=== PATIENT | female | born 1965 | race Asian ===

== ENCOUNTER 2019-02-02 00:27 | Inpatient (IN) | payer OTHER ==
--- NOTE | 2019-02-01 06:25 | NUR ---
PT IS AMBULATORY NO SCD DEVICE ATTACHED. DR. CAMARENA Addendum: 02/02/19 at 0652 by Nikki Rodriguez RN ADWOA RAMIRES
[~2019-02-02] VITALS: Ht 152.4 cm; Wt 46.3 kg
[2019-02-02 00:33] VITALS: BP 160/90
--- NOTE | 2019-02-02 00:38 | NUR ---
TO LOBBY A/W BED, AMB, EKG DONE, NSR.
--- NOTE | 2019-02-02 00:40 | NUR ---
EKG PERFORMED IN TRIAGE ROOM
--- NOTE | 2019-02-02 01:04 | NUR ---
PT AMBULATED TO BED 10.
--- NOTE | 2019-02-02 01:05 | NUR ---
PT TAKEN TO XRAY VIA W/C IN STABLE CONDITION
--- NOTE | 2019-02-02 01:12 | NUR ---
PT RETURNED FROM XRAY VIA W/C IN STABLE CONDITION
[2019-02-02 01:31] LABS: BASOPHILS % (AUTO) 0.8 % (0.0-2.0); EOSINOPHILS # (AUTO) 0.4 K/uL (0-0.4); EOSINOPHILS % (AUTO) 6.6 % (0.0-4.0); HEMATOCRIT 42.2 % (36-48); HEMOGLOBIN 14.1 g/dL (12.0-16.0); LYMPHOCYTES # (AUTO) 1.9 K/uL (2.5-16.5); LYMPHOCYTES % (AUTO) 35.5 % (20.5-51.1); MEAN CORPUSCULAR HEMOGLOBIN 31 pg (27-31); MEAN CORPUSCULAR HGB CONC 34 g/dL (33-37); MEAN CORPUSCULAR VOLUME 93.1 fL (80-94); MONOCYTES # (AUTO) 0.3 K/uL (0.8-1.0); MONOCYTES % (AUTO) 6.3 % (1.7-9.3); NEUTROPHILS # (AUTO) 2.8 K/uL (1.8-7.7); NEUTROPHILS % (AUTO) 50.8 % (42.2-75.2); PLATELET COUNT (AUTO) 197 K/uL (140-450); RED BLOOD CELL COUNT(AUTO) 4.54 MIL/uL (4.20-5.40); RED CELL DISTRIBUTION WIDTH 13.3 % (11.6-13.7); WHITE BLOOD COUNT (AUTO) 5.5 K/uL (4.8-10.8)
--- NOTE | 2019-02-02 01:37 | NUR ---
PATIENT PRESENTS TO ED WITH C/O CHEST PAIN X 2 MONTHS. PT STATES CHEST PAIN FEELS LIKE PRESSURE AND LAST APPROXIMATELY 30 SECONDS. PT DENIES PAIN AT THIS TIME. PT DENIES N/V/D; SKIN IS PINK/WARM/DRY; AAOX4 WITH EVEN AND STEADY GAIT; LUNGS CLEAR BL; HR EVEN AND REGULAR; PATIENT STATES PAIN OF 0/10 AT THIS TIME; VSS; PATIENT POSITIONED FOR COMFORT; HOB ELEVATED; BEDRAILS UP X2; BED DOWN.
[2019-02-02 01:46] LABS: ANION GAP 13.7 (8-16); CREATININE 0.7 mg/dL (0.6-1.3); POTASSIUM 3.7 mmol/L (3.5-5.1)
[2019-02-02 01:52] LABS: ALBUMIN 4.1 g/dL (3.4-5.0); MAGNESIUM 2.2 mg/dL (1.8-2.4); TOTAL BILIRUBIN 0.5 mg/dL (0.0-1.0)
[2019-02-02 02:38] LABS: PROTHROMBIN TIME 10.1 secs (10.8-13.4)
[2019-02-02] MEDS ORDERED: ASPIRIN 325 MG TAB ONE (02:57)
--- NOTE | 2019-02-02 02:58 | NUR ---
ASPIRIN 325 MG PO, PT SWALLOWED W/O DIFFICULTY W/ WATER.
[2019-02-02] MEDS ORDERED: NITROGLYCERIN 0.4 MG TAB SL PRN (03:00)
[2019-02-02] MEDS ORDERED: ACETAMINOPHEN 325 MG TAB PO PRN (03:00)
[2019-02-02] MEDS ORDERED: ZOLPIDEM 5 MG TAB PO PRN (03:00)
[2019-02-02] MEDS ORDERED: ONDANSETRON 4 MG/2 ML VIAL IVP PRN (03:00)
[2019-02-02] MEDS ORDERED: HYDROcodone/APAP 7.5/325 MG 1 TAB PO PRN (03:00)
[2019-02-02] MEDS ORDERED: ASPIRIN 325 MG TAB PO SCH (03:30)
--- NOTE | 2019-02-02 03:30 | NUR ---
Admited to Med-Surg; pt went to room 111-B; via [email or web address] by TANIA Carmona and DORITA Carvajal; patient acting appropriatly. VSS, patient acting appropriatly. Belongings list completed. Report to TANIA Araujo charge nurse.
[2019-02-02 04:13] VITALS: BP 144/88
[2019-02-02 04:32] LABS: FREE T4 (FREE THYROXINE) 0.9 ng/dL (0.76-1.46); PHOSPHORUS 3.9 mg/dL (2.5-4.9); THYROID STIMULATING HORMONE 6.72 uIU/mL (0.34-3.74)
--- NOTE | 2019-02-02 04:45 | NUR ---
RECEIVED PT FROM ER .PT IS AWAKE,ALERT AND ORIENTED.RESP UNLABORED IN RA.LUNG CLEAR.NO EDEMA NOTED.ORIENTED TO ROOM.CALL SYSTEM EXPLAINED AND WITHIN REACH.SL PATENT IN LT FA W/O REDNESS OR EDEMA AT SITE.TELE APPLIED AND SHOWING SR W/FREQ.OVC.DENIED PAIN AND/OR DISCOMFORT AT TIME OF ADMISSION.PLAN OF CARE DISCUSSED W/ PT .VERBALIZED UNDERSTANDING.WILL MONITOR PT.WILL ENDORSED PT TO DONY MARIN.
--- NOTE | 2019-02-02 04:45 | NUR ---
RECEIVED PT FROM CHARGE NURSE. PT IS AWAKE,ALERT AND ORIENTED X 4. PT COMFORTABLE IN BED. NO SIGNS OF PAIN. NO DISCOMFORT REPORTED BY PATIENT. PLACED IN LOW BED POSITION. CALL LIGHT WITH EASY REACH. WILL CONTINUE TO MONITOR.
--- NOTE | 2019-02-02 05:19 | NUR ---
ASPIRIN ALREADY GIVEN AT ER ENDORSED TO CHARGE NURSENEMESIO. DID NOT ADMINISTER THE ASPIRIN.
--- NOTE | 2019-02-02 05:22 | NUR ---
ASPIRIN FOR 0330 AM DOSE NOT TO BE GIVEN ANYMORE CONFIRMED BY DR. VILLEDA.
[2019-02-02] MEDS ORDERED: HEPARIN PER PHARMACY MC PRN (06:00)
[2019-02-02] MEDS ORDERED: ATOR20TA PO (06:32)
--- NOTE | 2019-02-02 06:32 | NUR ---
PATIENT HAS BEEN SCREENED AND CATEGORIZED MODERATE NUTRITION RISK. PATIENT WILL BE SEEN WITHIN 3-5 DAYS OF ADMISSION. 02/04/19-02/06/19 JU MARES MS, RDN
[2019-02-02] MEDS: NACL 0.9% 1,000 ML IV SCH ×2 (06:47→22:58)
--- NOTE | 2019-02-02 06:52 | NUR ---
PT IS AMBULATORY NO SCD DEVICE ATTACHED. DR. CAMARENA
[2019-02-02] MEDS ORDERED: LISINOPRIL 5 MG TAB PO SCH ×2 (07:00→09:00)
[2019-02-02 07:21] LABS: CHOL/HDL RATIO 2.9 (1-4.5)
--- NOTE | 2019-02-02 07:21 | NUR ---
ENDORSED TO AM SHIFT FOR CONTINUITY OF CARE. NO COMPLAINTS OF PAIN AT THIS TIME.
--- NOTE | 2019-02-02 07:22 | NUR ---
REPORT RECEIVED FROM RESCUE INSTRUCTOR NURSE, PT AWAKE ALERT, RESP EVEN UNLABORED ON RA, SKIN WARM DRY COLOR WNL, DENIES CHEST PAIN, POC REVIEWED, ALL SAFETY MEASURES IN PLACE, DENIES ANY IMMEDIATE NEEDS, WILL CONTINUE TO MONITOR.
[2019-02-02 08:00] VITALS: BP 126/69
[2019-02-02] MEDS: METOPROLOL 25 MG TAB PO SCH ×2 (08:00→16:43)
[2019-02-02] MEDS: ASPIRIN 81 MG TAB.CHEW PO SCH (09:00)
[2019-02-02] MEDS: DOCUSATE SODIUM 100 MG GELCAP PO SCH ×2 (09:00→21:32)
[2019-02-02] MEDS: hePARIN / DEXT 5% PREMIX 250 ML IV SCH ×2 (09:12→16:41)
--- NOTE | 2019-02-02 09:21 | NUR ---
HEPARIN DRIP STARTED, VERIFIED WITH 2 RNS, PT EDUCATED ON MEDICATION, PT VERBALIZED UNDERSTANDING, WILL CONTINUE TO SATISH.
[2019-02-02 09:56] LABS: APPEARANCE,URINE CLEAR (CLEAR); BILIRUBIN,URINE NEGATIVE (NEGATIVE); BLOOD, URINE TRACE-I (NEGATIVE); COLOR,URINE YELLOW (YELLOW); LEUKOCYTE ESTERASE ,URINE TRACE (NEGATIVE); NITRITE, URINE NEGATIVE (NEGATIVE); UGLUCOSE NEGATIVE (NEGATIVE)
[2019-02-02 10:04] LABS: BARBITURATE, URINE NEG. ng/ml (NEG <=200); BENZODIAZEPINE, URINE NEG. ng/mL (NEG <=200); CANNABINOID, URINE NEG. ng/mL (NEG <=50); COCAINE, URINE NEG. ng/mL (NEG <=300); OPIATE, URINE NEG. ng/mL (NEG <=2000); PHENCYCLIDINE SCREEN,URINE NEG. ng/mL (NEG <=25)
--- NOTE | 2019-02-02 10:30 | NUR ---
PT SLEEPING QUIETLY IN NAD, RESP EVEN UNLABORED, NO BLEEDING OR BRUISING NOTED.
--- NOTE | 2019-02-02 11:53 | NUR ---
VITALS TAKEN, STUDENT NURSE INTERVIEWING PATIENT, PT DENIES CHEST PAIN.
[2019-02-02 12:00] VITALS: BP 109/68
--- NOTE | 2019-02-02 14:02 | NUR ---
PT RESTING QUIETLY IN NAD, RESP EVEN UNLABORED, SKIN WARM DRY COLOR WNL, NO ACTIVE BLEEDING, HEPARIN DRIP CONTINUES AT 550 UNITS /HR, PT DENIES ANY IMMEDIATE NEEDS, WILL CONTINUE TO MONITOR.
[2019-02-02 16:00] VITALS: BP 119/68
--- NOTE | 2019-02-02 17:05 | NUR ---
DR PATHAK TO BEDSIDE.
--- NOTE | 2019-02-02 18:15 | NUR ---
HEPARIN DRIP STOPPED AT THIS TIME.
[2019-02-02] MEDS ORDERED: cefTRIAXone 1,000 MG VIAL ONE (18:52)
--- NOTE | 2019-02-02 18:54 | NUR ---
PER AFTER HOURS PHARMACIST, GIVE HEPARIN SQ 5000 NOW, HOLD 2100 DOSE, RESTART AT 0900. PHARMACIST AWARE OF PT'S PTT LEVEL 52.2, OK TO GIVE SQ DOSE NOW.
--- NOTE | 2019-02-02 19:14 | NUR ---
REPORT GIVEN TO SENIOR MILITARY ANALYST NURSE, PT IN STABLE CONDITION.
--- NOTE | 2019-02-02 19:15 | NUR ---
REPORT RECEIVED FROM AM SHIFT NURSE, PT AWAKE ALERT, O, X 4 . PT IS AMBULATORY, GOES TO THE RESTROOM W/ STEADY GAIT. NO RESPIRATORY DISTRESS AT THIS TIME, DENIES CHEST PAIN, POC REVIEWED, ALL SAFETY MEASURES IN PLACE, CALL LIGHT WITHIN REACH. WILL CONTINUE TO MONITOR.
--- NOTE | 2019-02-02 19:18 | NUR ---
RECEIVED CRITICAL LAB RESULT TROP I 0.162. REPORTED BY MAGI MUSA
[2019-02-02 20:00] VITALS: BP 123/80
[2019-02-02] MEDS: ATORVASTATIN 20 MG TAB PO SCH (21:32)
--- NOTE | 2019-02-02 22:13 | NUR ---
PT WENT TO THE BATHROOM, NO BM NOTED YET. WILL CONTINUE TO MONITOR
[2019-02-03] VITALS: BP 110/66
--- NOTE | 2019-02-03 01:32 | NUR ---
INFORMED DR. VILLEDA- ABN LAB 52.2 APTT, THIS AM SHIFT DR. PATHAK D/C THE HEPARIN. NO NEW ORDERS
--- NOTE | 2019-02-03 02:00 | NUR ---
PT WENT TO BATHROOM, AMBULATING WELL WITH STRADY GAIT, STILL NO BM. NO CHEST PAIN AT THIS TIME PER PT.
[2019-02-03 04:00] VITALS: BP 125/74
[2019-02-03 06:32] LABS: BASOPHILS # (AUTO) 0.1 K/uL (0.00-0.22); BASOPHILS % (AUTO) 1.9 % (0.0-2.0); EOSINOPHILS # (AUTO) 0.4 K/uL (0-0.4); EOSINOPHILS % (AUTO) 12.5 % (0.0-4.0); HEMOGLOBIN 13.2 g/dL (12.0-16.0); LYMPHOCYTES # (AUTO) 1.4 K/uL (2.5-16.5); LYMPHOCYTES % (AUTO) 42.4 % (20.5-51.1); MEAN CORPUSCULAR HEMOGLOBIN 32 pg (27-31); MEAN CORPUSCULAR HGB CONC 34 g/dL (33-37); MEAN CORPUSCULAR VOLUME 93.1 fL (80-94); MONOCYTES # (AUTO) 0.2 K/uL (0.8-1.0); MONOCYTES % (AUTO) 7.3 % (1.7-9.3); NEUTROPHILS # (AUTO) 1.2 K/uL (1.8-7.7); NEUTROPHILS % (AUTO) 35.9 % (42.2-75.2); PLATELET COUNT (AUTO) 178 K/uL (140-450); RED BLOOD CELL COUNT(AUTO) 4.19 MIL/uL (4.20-5.40); RED CELL DISTRIBUTION WIDTH 13.4 % (11.6-13.7); WHITE BLOOD COUNT (AUTO) 3.2 K/uL (4.8-10.8)
--- NOTE | 2019-02-03 06:36 | NUR ---
PT WAS REMINDED ON THE NPO AND THAT SHE HAS A STRESS TEST THIS AM
[2019-02-03 06:51] LABS: CARBON DIOXIDE 27.6 mmol/L (21-32); CREATININE 0.7 mg/dL (0.6-1.3); POTASSIUM 3.6 mmol/L (3.5-5.1)
[2019-02-03 06:56] LABS: PHOSPHORUS 3.5 mg/dL (2.5-4.9)
--- NOTE | 2019-02-03 07:20 | NUR ---
ENDORSED TO NEXT SHIFT FOR CONTINUITY OF CARE. PT IN STABLE CONDITION AT THIS TIME.
--- NOTE | 2019-02-03 07:21 | NUR ---
RECEIVED REPORT FROM FIELD CROPS HARVEST MACHINE OPERATOR NURSE DONY. PT IN STABLE CONDITION. RESPIRATIONS EVEN AND UNLABORED. IV INTACT AND PATENT. SAFETY MEASURES IN PLACE. CALL LIGHT AT BEDSIDE. BED IN LOW POSITION. WILL CONTINUE TO MONITOR.
[2019-02-03 08:00] VITALS: BP 108/68
[2019-02-03] MEDS: METOPROLOL 25 MG TAB PO SCH ×2 (08:49→17:00)
[2019-02-03] MEDS: LISINOPRIL 5 MG TAB PO SCH (08:50)
[2019-02-03] MEDS: ASPIRIN 81 MG TAB.CHEW PO SCH (08:50)
[2019-02-03] MEDS: DOCUSATE SODIUM 100 MG GELCAP PO SCH ×2 (08:50→20:05)
--- NOTE | 2019-02-03 09:07 | NUR ---
GAVE ORDERED DUE MEDICATIONS AT THIS TIME. PT TOLERATED WELL. SAFETY MEASURES IN PLACE. CALL LIGHT AT BEDSIDE. BED IN LOW POSITION. WILL CONTINUE TO MONITOR.
[2019-02-03] MEDS: NACL 0.9% 1,000 ML IV SCH (11:18)
--- NOTE | 2019-02-03 11:27 | NUR ---
FLUSHED IV WITH 10ML NS, STARTED NEW IVF 1,000ML AT 50ML/HR. PT TOLERATED WELL. BED IN LOW POSITION. CALL LIGHT AT BEDSIDE. WILL CONTINUE TO MONITOR.
[2019-02-03 12:00] VITALS: BP 109/55
[2019-02-03 16:00] VITALS: BP 103/62
--- NOTE | 2019-02-03 17:10 | NUR ---
HELD METOPROLOL TARTRATE PT STATES NO CHEST PAIN, BP 103/62 HR67
--- NOTE | 2019-02-03 19:50 | NUR ---
GAVE REPORT TO CHEF DE PARTIE NURSE FOR CONTINUITY OF CARE. PT IN STABLE CONDITION.
[2019-02-03 20:00] VITALS: BP 110/70
--- NOTE | 2019-02-03 20:00 | NUR ---
SEEN PT AWAKE, ALERT AND ORIENTED APPEARS COMFORTABLE. INITIAL ASSESSMENT DONE. VITAL SIGNS CHECKED. PT DENIES ANY DISCOMFORT. SAFETY ENSURED. PT DENIES ANY OTHER NEEDS.
[2019-02-03] MEDS: ATORVASTATIN 20 MG TAB PO SCH (20:04)
--- NOTE | 2019-02-03 20:05 | NUR ---
MEDICATIONS GIVEN W/ TEACHINGS. PT TOLERATED MEDS WELL.
--- NOTE | 2019-02-03 23:15 | NUR ---
SEEN PT ASLEEP BUT EASILY AROUSABLE. VITAL SIGNS CHECKED. PT DENIES ANY PAIN. CALL LIGHT W/IN REACH.
[2019-02-04] VITALS: BP 95/55
--- NOTE | 2019-02-04 02:05 | NUR ---
SEEN PT ASLEEP. IVF INFUSING WELL.
[2019-02-04 04:20] VITALS: BP 98/56
--- NOTE | 2019-02-04 04:20 | NUR ---
AWAKEN PT. VITAL SIGNS CHECKED. PT DENIES ANY DISCOMFORT. IVF INFUSING WELL. PT KEPT COMFORTABLE. CALL LIGHT W/IN REACH.
--- NOTE | 2019-02-04 06:40 | NUR ---
SEEN PT IN THE SINK DOING AM CARE. IVF INFUSING WELL. PT DENIES ANY DISCOMFORT. WILL ENDORSE CARE TO DAYSHIFT NURSE.
--- NOTE | 2019-02-04 07:37 | NUR ---
REPORT GIVEN TO DAYSHIFT NURSE.
--- NOTE | 2019-02-04 07:38 | NUR ---
RECEIVED BEDSIDE REPORT FROM FRYER LINE HELPER NURSE. PATIENT IS AWAKE, ALERT AND ORIENTEDX4. NO SIGNS OF DISTRESS ON RA. SKIN IS INTACT. TELE MONITOR IN PLACE. IV ON R FA 20G INFUSING NS AT 50. CLEAN, DRY AND INTACT. PATIENT IS AMBULATORY, GAIT IS STEADY. PATIENT IS CONTINENT. BED IN LOW POSITION. CALL LIGHT WITHIN REACH. WILL CONTINUE TO MONITOR THE PATIENT
[2019-02-04 07:41] LABS: ANION GAP 13.1 (8-16); CARBON DIOXIDE 26.6 mmol/L (21-32); CREATININE 0.7 mg/dL (0.6-1.3); POTASSIUM 3.7 mmol/L (3.5-5.1)
[2019-02-04 08:00] VITALS: BP 108/61
[2019-02-04 08:39] LABS: BASOPHILS % (AUTO) 1.3 % (0.0-2.0); EOSINOPHILS # (AUTO) 0.3 K/uL (0-0.4); EOSINOPHILS % (AUTO) 10.6 % (0.0-4.0); HEMATOCRIT 38.2 % (36-48); HEMOGLOBIN 12.6 g/dL (12.0-16.0); LYMPHOCYTES # (AUTO) 1.4 K/uL (2.5-16.5); LYMPHOCYTES % (AUTO) 43.3 % (20.5-51.1); MEAN CORPUSCULAR HEMOGLOBIN 31 pg (27-31); MEAN CORPUSCULAR HGB CONC 33 g/dL (33-37); MEAN CORPUSCULAR VOLUME 93.6 fL (80-94); MONOCYTES # (AUTO) 0.3 K/uL (0.8-1.0); MONOCYTES % (AUTO) 7.6 % (1.7-9.3); NEUTROPHILS # (AUTO) 1.2 K/uL (1.8-7.7); NEUTROPHILS % (AUTO) 37.2 % (42.2-75.2); PLATELET COUNT (AUTO) 170 K/uL (140-450); RED BLOOD CELL COUNT(AUTO) 4.07 MIL/uL (4.20-5.40); RED CELL DISTRIBUTION WIDTH 13.7 % (11.6-13.7); WHITE BLOOD COUNT (AUTO) 3.3 K/uL (4.8-10.8)
[2019-02-04] MEDS: DOCUSATE SODIUM 100 MG GELCAP PO SCH (09:00)
[2019-02-04] MEDS: ASPIRIN 81 MG TAB.CHEW PO SCH (10:01)
[2019-02-04] MEDS: LISINOPRIL 5 MG TAB PO SCH (10:01)
[2019-02-04] MEDS: METOPROLOL 25 MG TAB PO SCH (10:02)
--- NOTE | 2019-02-04 10:08 | NUR ---
ADMINISTERED MEDS. PATIENT TOLERATED WELL. PATIENT EDUCATED ON SIDE EFFECTS. NO COMPLAINTS AT THIS TIME. BED IN LOWEST POSITION. CALL LIGHT WITHIN REACH.
[2019-02-04] MEDS ORDERED: METO25TA PO (10:25)
[2019-02-04] MEDS ORDERED: ASPI-1718 PO (10:25)
[2019-02-04] MEDS ORDERED: NITR0.4T2 SL (10:32)
[2019-02-04 12:00] VITALS: BP 99/53
--- NOTE | 2019-02-04 12:00 | NUR ---
PATIENT LAYING IN BED. NO SIGNS OF DISTRESS. WILL CONTINUE TO MONITOR
--- NOTE | 2019-02-04 14:05 | NUR ---
EDUCATED PATIENT ON DISEASE PROCESS, ABN S/SX, FOLLOW UP W PCP AND GET [employer] CONSULT, EDUCATED ON MEDS, GAVE PRESCRIPTIONS, EDUCATED ON NOT A CANDIDATE ON PNA VACCINE, FLU IS UP TO DATE. GAVE STRESS TEST RESULTS, EKG AND LABS REQUESTED BY DR CONTRERAS. PATIENT LEFT IN STABLE CONDITION WALKING. IV WAS REMOVED TIP INTACT. TELE REMOVED AND ID BANDS REMOVED.
== END 2019-02-04 14:05 | disposition home or self-care (01) | DRG 281 ==
LOC: MED 00:27 → MTU 03:03
PROVIDERS: ADMIT General Practice; ATTEND General Practice
DX: I21.A1 Myocardial infarction type 2 (principal); N39.0 Urinary tract infection, site not specified; R31.9 Hematuria, unspecified; E02 Subclinical iodine-deficiency hypothyroidism; E78.5 Hyperlipidemia, unspecified; Z82.49 Family history of ischemic heart disease and other diseases of the circulatory system; Z80.8 Family history of malignant neoplasm of other organs or systems
CPT/HCPCS: 36415; 71046; 80048; 80053; 80305; 81001; 82150; 82948; 83036; 83690; 83735; 83880; 84100; 84439; 84443; 84484; 85025; 85610; 85730; 87081; 87086; 93005; 93017; 99285; J0696; J1644; J7030; J7060

== ENCOUNTER 2021-05-20 23:28 | Emergency (ER) | payer OTHER ==
[~2021-05-20] VITALS: Ht 152.4 cm; Wt 49.9 kg
[~2021-05-20 23:28] MED LIST: ASPI-1822 PO; ATOR20TA PO; METO25TA PO; NITR0.4T2 SL
[2021-05-20 23:38] VITALS: BP 132/86
[2021-05-21 00:47] LABS: BASOPHILS # (AUTO) 0.1 K/uL (0.00-0.22); BASOPHILS % (AUTO) 0.6 % (0.0-2.0); EOSINOPHILS % (AUTO) 0.1 % (0.0-4.0); HEMATOCRIT 44.4 % (36-48); HEMOGLOBIN 14.9 g/dL (12.0-16.0); LYMPHOCYTES % (AUTO) 11.9 % (20.5-51.1); MEAN CORPUSCULAR HEMOGLOBIN 32 pg (27-31); MEAN CORPUSCULAR HGB CONC 34 g/dL (33-37); MEAN CORPUSCULAR VOLUME 94.3 fL (80-94); MONOCYTES # (AUTO) 0.3 K/uL (0.8-1.0); MONOCYTES % (AUTO) 3.7 % (1.7-9.3); NEUTROPHILS # (AUTO) 6.8 K/uL (1.8-7.7); NEUTROPHILS % (AUTO) 83.7 % (42.2-75.2); PLATELET COUNT (AUTO) 175 K/uL (140-450); RED BLOOD CELL COUNT(AUTO) 4.71 MIL/uL (4.20-5.40); RED CELL DISTRIBUTION WIDTH 13.1 % (11.6-13.7); WHITE BLOOD COUNT (AUTO) 8.2 K/uL (4.8-10.8)
--- NOTE | 2021-05-21 01:12 | NUR ---
PATIENT TAKEN TO BED 11 VIA W/C.
[2021-05-21 01:19] LABS: ANION GAP 15.1 (8-16); CARBON DIOXIDE 24.6 mmol/L (21-32); CREATININE 0.7 mg/dL (0.6-1.3); POTASSIUM 3.7 mmol/L (3.5-5.1); TOTAL BILIRUBIN 0.5 mg/dL (0.0-1.0)
[2021-05-21] MEDS ORDERED: MECLIZINE 25 MG TAB PO ONE (01:30)
--- NOTE | 2021-05-21 01:30 | NUR ---
*65 YEAR OLD FEMALE
--- NOTE | 2021-05-21 01:30 | NUR ---
89 Y/O FEMALE CAME TO THE ED C/O DIZZINESS. PT STATES, "I FEEL REALLY DIZZY WHEN I OPEN MY EYES, AND IT STARTED YESTERDAY. I FEEL LIKE THE ROOM IS SPINNING." PT HAS NAUSEA AND VOMITTING, LITTLE BIT OF [place] AND DIFFICULTY OPENING THE EYE UPON ASSESSMENT. PT IS A&OX4, GCS15 NKA PMH: DENIES
[2021-05-21] MEDS ORDERED: ONDANSETRON 4 MG ODT PO ONE (01:35)
--- NOTE | 2021-05-21 02:30 | NUR ---
PT TAKEN TO CT VIA WHEELCHAIR
[2021-05-21] MEDS ORDERED: ASPIRIN 325 MG TAB PO ONE (02:40)
--- NOTE | 2021-05-21 02:48 | NUR ---
COVERING FOR PRIMARY NURSE DURING LUNCH. PER BENJI NEWMAN, HOLD ASPIRIN UNTIL CT SCAN RESULTS COME BACK NEGATIVE FOR ACTIVE BLEED.
--- NOTE | 2021-05-21 03:50 | NUR ---
received a call from [facility]. spoke to marty, pt needs to be transferred
--- NOTE | 2021-05-21 04:33 | NUR ---
Patient appears to be resting comfortably in bed. Vital Signs within normal limits. Respirations even and unlabored.
--- NOTE | 2021-05-21 08:16 | NUR ---
Patient to be transferred to [facility]. Is being transferred due to HIGHER LEVEL OF CARE. Receiving facility has accepting physician and available space. ER physician has signed transfer form. Patient or responsible libertarian has agreed to transfer and signed form. Patient belongings inventoried and will be sent with patient. Copy of nursing notes, lab reports, EKG, Physicians Orders and X-rays to be sent with patient. Report called to JESS MARIN at receiving facility. [facility] ambulance service has been called for transfer. ETA is 0900.
--- NOTE | 2021-05-21 08:44 | NUR ---
PT AWARE OF TRANSFER, CONSENT SIGNED. LEFT VOICEMAIL TO TO CALL BACK IN REGARDS TO TRANSFER.
--- NOTE | 2021-05-21 10:48 | NUR ---
[facility] HERE FOR TRANSPORT, #[id number]
[2021-05-21 10:57] VITALS: BP 106/76
== END 2021-05-21 10:57 | disposition short-term general hospital (02) ==
LOC: MED 23:28
DX: I21.4 Non-ST elevation (NSTEMI) myocardial infarction (principal); Z20.822 Contact with and (suspected) exposure to COVID-19; R42 Dizziness and giddiness
CPT/HCPCS: 36415; 70450; 80053; 84484; 85025; 87426; 93005; 99285; J8597; Q0162

== ENCOUNTER 2024-02-18 22:44 | Emergency (ER) | payer OTHER ==
[~2024-02-18] VITALS: Ht 152.4 cm; Wt 52.2 kg
[2024-02-18 23:39] VITALS: BP 121/69; PULSE 101; RESP 18; TEMP 98; O2SAT 99
[2024-02-19 00:16] LABS: BASOPHILS % (AUTO) 0.1 % (0.0-2.0); EOSINOPHILS % (AUTO) 0.2 % (0.0-4.0); HEMATOCRIT 42.3 % (36-48); HEMOGLOBIN 14.4 g/dL (12.0-16.0); LYMPHOCYTES # (AUTO) 0.3 K/uL (2.5-16.5); LYMPHOCYTES % (AUTO) 3.6 % (20.5-51.1); MEAN CORPUSCULAR HEMOGLOBIN 31 pg (27-31); MEAN CORPUSCULAR HGB CONC 34 g/dL (33-37); MEAN CORPUSCULAR VOLUME 92.3 fL (80-94); MONOCYTES # (AUTO) 0.1 K/uL (0.8-1.0); MONOCYTES % (AUTO) 1.2 % (1.7-9.3); NEUTROPHILS # (AUTO) 7.5 K/uL (1.8-7.7); NEUTROPHILS % (AUTO) 94.9 % (42.2-75.2); PLATELET COUNT (AUTO) 154 K/uL (140-450); RED BLOOD CELL COUNT(AUTO) 4.58 MIL/uL (4.20-5.40); RED CELL DISTRIBUTION WIDTH 13.5 % (11.6-13.7); WHITE BLOOD COUNT (AUTO) 7.9 K/uL (4.8-10.8)
[2024-02-19 00:38] LABS: CALCIUM 9.1 mg/dL (8.5-10.1); CARBON DIOXIDE 27.6 mmol/L (21-32); CREATININE 0.8 mg/dL (0.6-1.3); POTASSIUM 3.6 mmol/L (3.5-5.1)
[2024-02-19 00:48] LABS: ALANINE AMINOTRANSFERASE 1512 U/L (12-78); ALBUMIN 3.9 g/dL (3.4-5.0); ALKALINE PHOSPHATASE 207 U/L (50-136); ASPARTATE AMINOTRANSFERASE 1659 U/L (15-37); BILIRUBIN,DIRECT 2.1 mg/dL (0.0-0.3); LIPASE 54 U/L (16-77); TOTAL BILIRUBIN 3.3 mg/dL (0.0-1.0); TOTAL PROTEIN, SERUM 7.7 g/dL (6.4-8.2)
[2024-02-19] MEDS: NACL 0.9% 1,000 ML IV ONE ×2 (03:23→07:14)
[2024-02-19] MEDS: ONDANSETRON 4 MG/2 ML VIAL IVP ONE (03:25)
[2024-02-19] MEDS: MORPHINE SULFATE 4 MG/ML SYR IVP ONE (03:28)
[2024-02-19] MEDS ORDERED: LISI5TAB18 PO (04:56)
[2024-02-19] MEDS ORDERED: cefTRIAXone 1,000 MG VIAL ONE (05:53)
[2024-02-19 07:20] LABS: LACTIC ACID 1.4 mmol/L (0.4-2.0)
[2024-02-19] MEDS: metroNIDAZOLE 500 MG/NS PREMIX 100 ML IV ONE (07:39)
[2024-02-19] MEDS ORDERED: ACETAMINOPHEN 325 MG TAB ONE (09:00)
[2024-02-19] MEDS: ACETAMINOPHEN 325 MG TAB PO ONE (09:02)
[2024-02-19 10:17] VITALS: BP 118/62; PULSE 25; RESP 25; TEMP 100.4; O2SAT 95
== END 2024-02-19 10:14 | disposition short-term general hospital (02) ==
LOC: MED 22:44
DX: K80.20 Calculus of gallbladder without cholecystitis without obstruction (principal); Z20.822 Contact with and (suspected) exposure to COVID-19; R10.13 Epigastric pain; R74.01 Elevation of levels of liver transaminase levels; E80.6 Other disorders of bilirubin metabolism; R79.89 Other specified abnormal findings of blood chemistry; I11.9 Hypertensive heart disease without heart failure; Z79.899 Other long term (current) drug therapy
CPT/HCPCS: 36415; 71045; 76705; 80048; 80076; 83605; 83690; 84484; 85025; 87040; 87186; 93005; 96361; 96365; 96367; 96375; 99285; J0696; J2270; J2405; J3490; J7030; Q9967